=== PATIENT | male | born 1950 ===

== ENCOUNTER → 2016-07-03 | Day surgery (SDC) | payer MEDICAID, MEDICARE ==
[~2016-07-03] VITALS: Ht 172.7 cm; Wt 79.4 kg
[2016-07-03] VITALS (7 sets, daily range): BP systolic 102–130; BP diastolic 60–75
[~2016-07-03] MED LIST: ANDROGEL1.25 GM TD; BSS 15ml BTL ONE; BSS 500ml btl ONE; BUPROPION XL150 MG ORAL; CALCIUM CITRAT250 M1 PO; Dexamethasone 4mg/ml vial ONE; EPINEPHrine 1mg/1ml Amp ONE; GABAPENTIN300 MG ORAL; HYDROCODON-ACE1 EA16 ORAL; LOTREL 5-20 MG1 EACH ORAL; LR 1000ml ONE; Lidocaine 1% MPF 10mg/ml 5ml ONE; Midazolam 2mg/2ml Inj ONE; NS Irrig 1000ml ONE; PRAMIPEXOLE D0.25 MG ORAL; Povidone-Iodine 5% opth solution ONE; Sodium Hyaluronate 14 mg/ml 0.85ml ONE; Sterile Water Irrig 1000ml IRRIG ONE; TAMSULOSIN HCL0.4 MG ORAL; VIAGRA100 MG PO; VITAMIN D400 INTLU ORAL; fentaNYL 250mcg/5ml ONE
--- NOTE | 2016-07-03 07:36 | Pre-Procedure Note/Attestation ---
Pre-Procedure Note/Attestation Complete Prior to Procedure Planned Procedure: right Procedure Narrative: cataract extraction with implant right eye Indications for Procedure Pre-Operative Diagnosis: cataract right eye Attestation I attest that I discussed the nature of the procedure; its benefits; risks and complications; and alternatives (and the risks and benefits of such alternatives ), prior to the procedure, with the patient (or the patient's legal billing customer service representative). I attest that, if there was a reasonable possibility of needing a blood transfusion, the patient (or the patient's legal billing customer service representative) was given the [facility] of Health Services standardized written summary, pursuant to the Samuel Ashwood Blood Safety Act ([place] Health and Safety Code # 1645, as amended). I attest that I re-evaluated the patient just prior to the surgery and that there has been no change in the patient's H&P, except as documented below: BASSEM SANTANA Jul 03, 2016 07:36
[2016-07-03] MEDS: Akten 3.5% 1ml Btl RIGHT EYE SCH ×3 (08:20→08:47)
[2016-07-03] MEDS: Diclofenac Sod 0.1% Op Soln RIGHT EYE SCH ×3 (08:20→08:48)
[2016-07-03] MEDS: Phenylephrine 2.5% Op Soln RIGHT EYE SCH ×3 (08:20→08:49)
[2016-07-03] MEDS: Tobradex Opth Susp 2.5ml RIGHT EYE SCH ×3 (08:20→08:49)
[2016-07-03] MEDS: Tropicamide 1% Opth Soln RIGHT EYE SCH ×3 (08:20→08:48)
[2016-07-03] MEDS: Gatifloxacin Opth Solution 0.5% RIGHT EYE SCH ×3 (08:22→08:50)
--- NOTE | 2016-07-03 10:58 | Brief Operative Note ---
Immediate Post Operative Note Operative Note Pre-op Diagnosis: cataract right eye Procedure: phacoemulsification of cataract with implant right eye Post-op Diagnosis: same as pre-op Surgeon: bassem hodge Party Demonstrator: none Anesthesiologist: wally lyon Anesthesia: MAC Specimen: none Complications: none Condition: stable Estimated Blood Loss: none Drains: none Implant(s) used?: Yes BASSEM HODGE Jul 03, 2016 10:58
--- NOTE | 2016-07-03 11:05 | Immediate Post-Op Evaluation ---
Immediate Post-Op Evalulation Immediate Post-Op Evalulation Procedure: cataract extraction right eye Date of Evaluation: Jul 03, 2016 Blood Pressure Systolic: 104 Blood Pressure Diastolic: 67 Pulse Rate: 62 Respiratory Rate: 14 O2 Sat by Pulse Oximetry: 98 Temperature (Fahrenheit): 97.8 Nausea: No Vomiting: No Complications none Patient Status: awake, reacts, patent Hydration Status: adequate Drug: none TARRILLION,ASHISH OTHER SPORTS OFFICIAL Jul 03, 2016 11:05
--- NOTE | 2016-07-03 11:05 | Anethesia Preoperative Eval ---
Anesthesia Pre-op PMH/ROS General Date of Evaluation: Jul 03, 2016 Time of Evaluation: 10:45 Anesthesiologist: camron ASA Score: ASA 2 Mallampati Score Class I : Soft palate, uvula, fauces, pillars visible Class II: Soft palate, uvula, fauces visible Class III: Soft palate, base of uvula visible Class IV: Only hard plate visible Mallampati Classification: Class II Anesthesia History: none Family History: no anesthesia problems Allergies: Coded Allergies: Cat Dander (Verified Allergy, Intermediate, 07/03/16) Cultivated Oat Pollen (Verified Allergy, Intermediate, 07/03/16) Medications: see eMAR Past Medical History Cardiovascular: Reports: HTN Pulmonary: Denies: COPD, SUKHI, asthma, other Gastrointestinal/Genitourinary: Reports: GERD, other - bph Neurologic/Psychiatric: Reports: depression/anxiety Endocrine: Denies: DM, hypothyroidism, other, steroids HEENT: Reports: cataract (R) Hematology/Immune: Denies: DVT, anemia, bleeding disorder, other Musculoskeletal/Integumentary: Denies: DDD, DJD, OA, RA, edema, other PSxH Narrative: rotator cuff Anesthesia Pre-op Phys. Exam Physician Exam Last Vital Signs Date Time Temp Pulse Resp B/P Pulse Ox O2 Delivery O2 Flow Rate FiO2 07/03/16 08:20 98.2 63 16 120/65 98 Room Air Constitutional: NAD Neurologic: CN 2-12 intact Cardiovascular: RRR Respiratory: CTA Gastrointestinal: S/NT/ND Airway Exam Mallampati Classification 2 Mallampati Score: Class II MO: full ROM: full Dentures: no lower, no upper Anesthesia Pre-op A/P Studies Pre-op Studies: EKG - sr Risk Assessment & Plan Plan: mac Status Change Before Surgery: No Pre-Antibiotics Drug: none TATIANARILLION,ASHISH ACCOUNTING PROFESSOR Jul 03, 2016 11:05
--- NOTE | 2016-07-03 11:13 | 48 Hour Post Anesthesia Eval ---
Post Anesthesia Evaluation Procedure: cataract extraction right eye Date of Evaluation: Jul 03, 2016 Time of Evaluation: 11:12 Blood Pressure Systolic: 121 0: 68 Pulse Rate: 61 Respiratory Rate: 14 O2 Sat by Pulse Oximetry: 100 Airway: patent Nausea: No Vomiting: No Hydration Status: adequate Mental Status/LOC: patient returned to baseline Post-Anesthesia Complications: none Follow-up care needed: N/A ASHISH PETTIT CRNA Jul 03, 2016 11:13
--- NOTE | 2016-07-03 17:38 | Operative Note - Dictated ---
DATE OF OPERATION: 07/03/2016 PREOPERATIVE DIAGNOSIS: Cataract, right eye. POSTOPERATIVE DIAGNOSIS: Cataract, right eye. PROCEDURE: Phacoemulsification of cataract, right eye, with placement of posterior chamber intraocular lens. SURGEON: Nate Lorenz M.D. PAPER MILL MANAGER: None. ANESTHESIA: MAC/local. ANESTHESIOLOGIST: Sana Rai CRNA. INDICATION FOR PROCEDURE: Poor vision, right eye. DESCRIPTION OF FINDINGS: Dense nuclear sclerotic cataract, right eye with floppy iris syndrome. DESCRIPTION OF PROCEDURE: The patient received a topical anesthetic block consisting of 3.5% Akten eyedrops. The eye was prepped and draped in usual manner. A lid speculum was placed. An operating Zeiss microscope was positioned. A temporal corneal groove was made with a kyle blade. A SuperSharp blade made a stab incision at the 12 o'clock position. A 0.1 mL of 1% nonpreserved intracameral lidocaine was injected. Healon was instilled into the anterior chamber and a 2.5/2.8 mm trapezoidal kyle blade was used to complete the temporal corneal wound. A cystotome was used to create an anterior capsular flap. Utrata forceps were used to complete the capsulorrhexis. BSS on a cannula was used to hydrodissect the nucleus. The lens nucleus was phacoemulsified in a phaco-fracture technique. Remaining cortical material was removed with the I/A and the posterior capsule was polished with the I/A on Cap vac. Healon was reinstilled into the capsular bag and anterior chamber. An Titi foldable one-piece posterior chamber intraocular lens, model SA60AT, power 16.0 diopter, serial #[id number], was placed in the injector. The lens was put in the capsular bag. The I/A tip was used to remove the Healon and position the lens. The wound edge was hydrated with BSS and a blunt-tipped cannula. The wound was checked and found to be watertight. The lid speculum was removed and a drop of TobraDex and Zymaxid was placed. A clear plastic shield was taped over the eye. The patient tolerated the procedure well and left the operating room in good condition. Nate Lorenz M.D. ([facility]) DR: Traci JOB#: [id number] CC: Dilshad Salomon M.D.
== END | disposition home or self-care (01) ==
LOC: SUR 07:52
DX: H25.11 Age-related nuclear cataract, right eye (principal); H21.81 Floppy iris syndrome; F51.01 Primary insomnia; G47.33 Obstructive sleep apnea (adult) (pediatric); N40.1 Benign prostatic hyperplasia with lower urinary tract symptoms; N13.8 Other obstructive and reflux uropathy; I77.819 Aortic ectasia, unspecified site; K21.9 Gastro-esophageal reflux disease without esophagitis; M81.0 Age-related osteoporosis without current pathological fracture; E53.8 Deficiency of other specified B group vitamins; E29.1 Testicular hypofunction; H81.10 Benign paroxysmal vertigo, unspecified ear; G25.81 Restless legs syndrome; I10 Essential (primary) hypertension; G43.909 Migraine, unspecified, not intractable, without status migrainosus; F32.9 Major depressive disorder, single episode, unspecified; F41.9 Anxiety disorder, unspecified; Z87.891 Personal history of nicotine dependence
CPT/HCPCS: 66984; J0171; J1100; J2250; J3010; J7120; V2632; Z7512; 94003; 94150

== ENCOUNTER 2016-10-09 07:26 | Day surgery (SDC) | payer OTHER, MEDICARE ==
[~2016-10-09] VITALS: Ht 175.3 cm; Wt 80.7 kg
[2016-10-09] VITALS (10 sets, daily range): BP systolic 100–127; BP diastolic 57–81
[~2016-10-09 07:26] MED LIST changes: +Akten 3.5% 1ml Btl ONE; -LR 1000ml ONE; -Midazolam 2mg/2ml Inj ONE; -NS Irrig 1000ml ONE; -Sodium Hyaluronate 14 mg/ml 0.85ml ONE; -Sterile Water Irrig 1000ml IRRIG ONE; -fentaNYL 250mcg/5ml ONE
--- NOTE | 2016-10-09 07:38 | Pre-Procedure Note/Attestation ---
Pre-Procedure Note/Attestation Complete Prior to Procedure Planned Procedure: left Procedure Narrative: cataract extraction with implant left eye Indications for Procedure Pre-Operative Diagnosis: cataract left eye Attestation I attest that I discussed the nature of the procedure; its benefits; risks and complications; and alternatives (and the risks and benefits of such alternatives ), prior to the procedure, with the patient (or the patient's legal bottling equipment sales representative). I attest that, if there was a reasonable possibility of needing a blood transfusion, the patient (or the patient's legal bottling equipment sales representative) was given the [facility] Services standardized written summary, pursuant to the Samuel Rupesh Blood Safety Act ([place] Health and Safety Code # 1645, as amended). I attest that I re-evaluated the patient just prior to the surgery and that there has been no change in the patient's H&P, except as documented below: BASSEM SANTAAN Oct 09, 2016 07:38
[2016-10-09] MEDS ORDERED: Akten 3.5% 1ml Btl ONE (07:56)
[2016-10-09] MEDS ORDERED: Gatifloxacin Opth Solution 0.5% ONE (07:57)
[2016-10-09] MEDS ORDERED: Diclofenac Sod 0.1% Op Soln ONE (07:57)
[2016-10-09] MEDS ORDERED: Phenylephrine 2.5% Op Soln ONE (07:57)
[2016-10-09] MEDS ORDERED: Tobradex Opth Susp 2.5ml ONE (07:57)
[2016-10-09] MEDS ORDERED: Tropicamide 1% Opth Soln ONE (07:58)
[2016-10-09] MEDS ORDERED: METOPROLOL SUCC50 MG ORAL (08:00)
[2016-10-09] MEDS: Tropicamide 1% Opth Soln LEFT EYE SCH ×3 (08:05→08:23)
[2016-10-09] MEDS: Gatifloxacin Opth Solution 0.5% LEFT EYE SCH ×3 (08:05→08:23)
[2016-10-09] MEDS: Diclofenac Sod 0.1% Op Soln LEFT EYE SCH ×3 (08:05→08:24)
[2016-10-09] MEDS: Phenylephrine 2.5% Op Soln LEFT EYE SCH ×3 (08:05→08:23)
[2016-10-09] MEDS: Tobradex Opth Susp 2.5ml LEFT EYE SCH ×3 (08:05→08:23)
[2016-10-09] MEDS: Akten 3.5% 1ml Btl LEFT EYE SCH ×3 (08:06→08:24)
[2016-10-09] MEDS ORDERED: Sterile Water Irrig 1000ml IRRIG ONE (10:45)
[2016-10-09] MEDS ORDERED: fentaNYL 100 mcg/2 mL IV ONE (10:45)
[2016-10-09] MEDS ORDERED: Midazolam 2mg/2ml Inj ONE (10:45)
[2016-10-09] MEDS ORDERED: LR 1000ml ONE (10:45)
[2016-10-09] MEDS ORDERED: NS Irrig 1000ml ONE (10:45)
--- NOTE | 2016-10-09 11:07 | Anethesia Preoperative Eval ---
Anesthesia Pre-op PMH/ROS General Date of Evaluation: Oct 09, 2016 Time of Evaluation: 10:55 Anesthesiologist: camron ASA Score: ASA 2 Mallampati Score Class I : Soft palate, uvula, fauces, pillars visible Class II: Soft palate, uvula, fauces visible Class III: Soft palate, base of uvula visible Class IV: Only hard plate visible Mallampati Classification: Class II Surgeon: naveen Diagnosis: cataract Surgical Procedure: cataract extraction with IOL Anesthesia History: none Family History: no anesthesia problems Allergies: Coded Allergies: Cat Dander (Verified Allergy, Intermediate, 07/03/16) Cultivated Oat Pollen (Verified Allergy, Intermediate, 07/03/16) Medications: see eMAR Past Medical History Cardiovascular: Reports: HTN Pulmonary: Denies: COPD, SUKHI, asthma, other Gastrointestinal/Genitourinary: Reports: GERD Neurologic/Psychiatric: Denies: CVA, TIA, dementia, depression/anxiety, other Endocrine: Denies: DM, hypothyroidism, other, steroids HEENT: Reports: cataract (L) Hematology/Immune: Denies: DVT, anemia, bleeding disorder, other Musculoskeletal/Integumentary: Denies: DDD, DJD, OA, RA, edema, other PSxH Narrative: cataract extraction Anesthesia Pre-op Phys. Exam Physician Exam Last Vital Signs Date Time Temp Pulse Resp B/P Pulse Ox O2 Delivery O2 Flow Rate FiO2 10/09/16 08:11 97.8 49 18 121/57 97 Room Air Constitutional: NAD Neurologic: CN 2-12 intact Cardiovascular: RRR Respiratory: CTA Gastrointestinal: S/NT/ND Airway Exam Mallampati Score: Class II MO: full ROM: full Dentures: no lower, no upper Anesthesia Pre-op A/P Studies Pre-op Studies: EKG - SR Risk Assessment & Plan Plan: mac Status Change Before Surgery: No Pre-Antibiotics Drug: na ASHISH PETTIT LICENSED CHEMICAL SPRAY TECHNICIAN Oct 09, 2016 11:07
--- NOTE | 2016-10-09 11:11 | Brief Operative Note ---
Immediate Post Operative Note Operative Note Pre-op Diagnosis: cataract left eye Procedure: phacoemulsification of cataract with implant left eye Surgeon: bassem hodge Associate Marketing Manager: none Anesthesiologist: wally lyon crna Anesthesia: MAC Specimen: none Complications: none Condition: stable Estimated Blood Loss: none Drains: none Implant(s) used?: Yes BASSEM HODGE Oct 09, 2016 11:11
--- NOTE | 2016-10-09 11:19 | Immediate Post-Op Evaluation ---
Immediate Post-Op Evalulation Immediate Post-Op Evalulation Procedure: cataract extraction with IOL Date of Evaluation: Oct 09, 2016 Time of Evaluation: 11:12 IV Fluids: 300 Blood Pressure Systolic: 116 Blood Pressure Diastolic: 70 Pulse Rate: 54 Respiratory Rate: 14 O2 Sat by Pulse Oximetry: 95 Temperature (Fahrenheit): 97.5 Nausea: No Vomiting: No Complications none Patient Status: awake, patent Hydration Status: adequate Drug: none ASHISH PETTIT CRNA Oct 09, 2016 11:19
--- NOTE | 2016-10-09 12:17 | 48 Hour Post Anesthesia Eval ---
Post Anesthesia Evaluation Procedure: cataract extraction with IOL Date of Evaluation: Oct 09, 2016 Time of Evaluation: 12:17 Blood Pressure Systolic: 115 0: 73 Pulse Rate: 45 Respiratory Rate: 14 O2 Sat by Pulse Oximetry: 100 Airway: patent Nausea: No Vomiting: No Hydration Status: adequate Cardiopulmonary Status: stable Mental Status/LOC: patient returned to baseline Post-Anesthesia Complications: none Follow-up care needed: N/A ASHISH PETTIT CRNA Oct 09, 2016 12:17
--- NOTE | 2016-10-09 18:15 | Operative Note - Dictated ---
DATE OF OPERATION: 10/09/2016 PREOPERATIVE DIAGNOSIS: Cataract, left eye. POSTOPERATIVE DIAGNOSIS: Cataract, left eye. PROCEDURE: Phacoemulsification cataract left eye with placement of posterior chamber intraocular lens. SURGEON: Nate Lorenz M.D. OUTBOUND SALES REPRESENTATIVE: None. ANESTHESIA: MAC/topical. ANESTHESIOLOGIST: Sana Rai C.R.N.A. INDICATION FOR PROCEDURE: Poor vision, left eye. DESCRIPTION OF FINDINGS: Nuclear sclerotic and floppy iris syndrome, left eye. DESCRIPTION OF PROCEDURE: The patient received a topical anesthetic block consisting of 3.5% Akten eye drops. The eye was then prepped and draped in usual manner. A lid speculum was placed and a Zeiss microscope was positioned. The temporal corneal groove was made with a kyle blade. A Supersharp blade made a stab incision at the 6 o'clock position. A 0.1 mL of 1% nonpreserved intracameral lidocaine was injected. Healon was instilled into the anterior chamber and a 2.5/2.8 mm trapezoidal kyle blade was used to complete the temporal corneal wound. A cystotome was used to create an anterior capsular flap. Utrata forceps were used to complete the capsulorrhexis. BSS on a cannula was used to hydrodissect the nucleus. The lens nucleus phacoemulsified in a phaco-fracture technique. Remaining cortical material with the I/A and the posterior capsule polished with the I/A on Cap vac. Healon was reinstilled into the capsular bag and anterior chamber, and an Titi foldable one-piece posterior chamber intraocular lens, model SA60AT power, 18.0 diopter, serial #[id number] was placed in the injector. The lens was put in the capsular bag. The I/A tip was used to remove the Healon and position the lens. The wound edge was hydrated with BSS and a blunt-tipped cannula. The wound was checked and found to be watertight. The lid speculum was removed and a drop of TobraDex and Zymaxid was placed. A clear plastic shield was taped over the eye. The patient tolerated the procedure well and left the operating room in good condition. Nate Lorenz M.D. ([facility]) DR: FARHEEN JOB#: [id number] CC:
== END 2016-10-09 12:50 | disposition home or self-care (01) ==
LOC: SUR 07:26
DX: H25.12 Age-related nuclear cataract, left eye (principal); H21.81 Floppy iris syndrome; G47.00 Insomnia, unspecified; N40.1 Benign prostatic hyperplasia with lower urinary tract symptoms; R39.12 Poor urinary stream; G25.81 Restless legs syndrome; K21.9 Gastro-esophageal reflux disease without esophagitis; M81.0 Age-related osteoporosis without current pathological fracture; H81.10 Benign paroxysmal vertigo, unspecified ear; E29.1 Testicular hypofunction; I10 Essential (primary) hypertension; G47.33 Obstructive sleep apnea (adult) (pediatric); I77.819 Aortic ectasia, unspecified site; R06.00 Dyspnea, unspecified; G43.909 Migraine, unspecified, not intractable, without status migrainosus; Z87.891 Personal history of nicotine dependence
CPT/HCPCS: 66984; J0171; J1100; J2250; J3010; J7120; V2632; 94003; 94150